=== PATIENT | male | born 1955 | race Hispanic/Latino ===

== ENCOUNTER 2018-03-13 10:16 | Observation (INO) | payer OTHER ==
[~2018-03-13 10:16] MED LIST: LACTATED RINGERS 1,000 ML IV SCH; MARCAINE 0.5% INFILTRATI ONE; METHYLENE BLUE IRRIGATION ONE; NACL 0.9% 1000 ML IR ONE; VERSED IV NR
[2018-03-13] MEDS ORDERED: ANCEF/STERILE WATER 2 GM/20 ML IV NR (12:00)
[2018-03-13] MEDS ORDERED: NACL BACTERIOSTATIC INFILTRATI ONE (12:05)
[2018-03-13 13:02] LABS: Basophils % (Auto) 0.7 % (0.0-1.8); Eosinophils # (Auto) 0.1 K/mm3 (0.0-0.4); Eosinophils % (Auto) 2.5 % (0.0-4.3); Hematocrit 44.3 % (35.5-45.6); Hemoglobin 14.1 gm/dl (11.8-15.2); Lymphocytes # (Auto) 1.6 K/mm3 (1.2-5.4); Lymphocytes % (Auto) 28.9 % (13.4-35.0); Mean Corpuscular HGB Conc 32 % (32-34); Mean Corpuscular Volume 74 fl (84-94); Monocytes # (Auto) 0.3 K/mm3 (0.0-0.8); Monocytes % (Auto) 5.9 % (0.0-7.3); Platelet Count 172 K/mm3 (140-440); Red Blood Count 5.95 M/mm3 (3.65-5.03); Red Cell Distribution Width 15.4 % (13.2-15.2)
[2018-03-13 13:06] LABS: Mean Corpuscular Hemoglobin 24 pg (28-32)
[2018-03-13] MEDS ORDERED: MARCAINE 0.5% 30 ML INFILTRATI ONE (13:40)
[2018-03-13] MEDS ORDERED: DIPRIVAN 10 MG/ML IV ONE (13:54)
[2018-03-13] MEDS ORDERED: SUBLIMAZE ONE (13:55)
--- NOTE | 2018-03-13 13:59 | Anesthesia Day of Surgery ---
Anesthesia Day of Surgery - Day of Surgery Patient Examined: Yes Patient H&P Reviewed: Yes Patient is NPO: Yes
[2018-03-13] MEDS ORDERED: TORADOL IV PRN (14:12)
[2018-03-13] MEDS ORDERED: ZOFRAN IV PRN ×2 (14:12→19:20)
[2018-03-13] MEDS ORDERED: DILAUDID IV PRN ×2 (14:12→19:18)
--- NOTE | 2018-03-13 14:12 | Anesthesia Consultation ---
Anesthesia Consult and Med Hx Date of service: 03/13/18 - Airway Anesthetic Teeth Evaluation: Good ROM Head & Neck: Adequate Mental/Hyoid Distance: Adequate Mallampati Class: Class II Intubation Access Assessment: Probably Good - Pulmonary Exam CTA: Yes - Cardiac Exam Cardiac Exam: RRR - Pre-Operative Health Status ASA Pre-Surgery Classification: ASA2 Proposed Anesthetic Plan: General - Pulmonary Hx Smoking: Yes (QUIT 1975) - Cardiovascular System Hx Hypertension: Yes Hx Coronary Artery Disease: Yes - Central Nervous System Hx Neuromuscular Disorder: No - Gastrointestinal Hx Ulcer: No Hx Gastroesophageal Reflux Disease: No - Other Systems Hx Alcohol Use: No Hx Substance Use: No Hx Cancer: No
[2018-03-13] MEDS ORDERED: ZEMURON IV ONE (14:49)
[2018-03-13] MEDS ORDERED: XYLOCAINE MPF 2% ONE (14:49)
[2018-03-13] MEDS ORDERED: DECADRON ONE (14:49)
[2018-03-13] MEDS ORDERED: ZOFRAN ONE (14:50)
[2018-03-13] MEDS ORDERED: DILAUDID ONE (14:50)
[2018-03-13] MEDS ORDERED: METHYLENE BLUE ONE (15:05)
[2018-03-13] MEDS ORDERED: NACL 0.9% 1000 ML 1,000 ML ONE (15:22)
--- NOTE | 2018-03-13 18:37 | Post Anesthesia Evaluation ---
- Post Anesthesia Evaluation Patient Participated: Yes Airway Patent: Yes Stable Respiratory Function: Yes Nausea/Vomiting: No Temp > 96.8F: Yes Pain Manageable: Yes Adequeate Hydration: Yes Anesthesia Complications: No Block Receding Appropriately: Not Applicable Patient on Ventilator: No
[2018-03-13] MEDS ORDERED: NORCO 5/325 PO PRN (19:19)
[2018-03-13] MEDS ORDERED: LACTATED RINGERS 1,000 ML IV SCH (20:00)
--- NOTE | 2018-03-13 21:40 | Operative Report ---
PREOPERATIVE DIAGNOSIS: Recurrent left inguinal hernia x 3. POSTOPERATIVE DIAGNOSIS: Recurrent left inguinal hernia x 3. PROCEDURE: Laparoscopic examination and laparoscopic repair of left inguinal hernia with removal of the hernia sac and application of a graft, ____ medium size. FINDINGS: The patient had a fairly good-sized hernia that could be seen from outside, is measuring at least about 8 x 8 cm. The defect is about 2 x 2 cm. I took a picture of that and I was able to remove the sac in its entirety with the use of the scope. This was sent to the pathologist. ANESTHESIA: General. BLOOD LOSS: Minimal. Findings as above with the hernia defect of about 2 x 2 cm. I was able to go around it and remove the entire sac. DESCRIPTION OF PROCEDURE: With the patient in supine position and after cleansing and draping in usual fashion, I made a small infraumbilical transverse incision with a length of about 2 cm deepened through subcutaneous tissue, all the way down to fascia, which was incised. I was able to introduce #10 trocar in the usual fashion under vision, it went in nicely, then tacking it to the fascia with use of 2 loops of 0 Vicryl. The abdominal cavity was insufflated with CO2 pressure of 15 for which #10 trocar was inserted. With use of the trocar, I was able to see the area, in question, we took picture of that. Then, I was able to go around the defect with the peritoneum, dissecting it completely and removing the whole specimen via the larger trocar. This was done with the use of 2 other trocars, #5 each, one in the midline, one in the right mid lower abdomen. After sustaining that, we were able to dissect the peritoneum well and I was able to see the ilioinguinal tract and the conjoint tendon area. I was able to introduce a medium-sized graft in the usual fashion, tacking it to the fascia with use of a tacker all around, putting 3 in the area of the ilioinguinal area. I was very much satisfied. We had good hemostasis. Then, I was able to introduce 2 piece of Seprafilm over the area with the omentum stuck to the graft area. We were very much satisfied, we had good hemostasis. I removed the trocars, one by one. I did instill methylene blue through the Leiva catheter to make sure that there was no leak into the abdominal cavity, which was the case that there was no leak. After that, the fascia was then closed with interrupted stitches of 0 Vicryl [id number], at least I put four stitches there and the skin with 4-0 Vicryl and the same to the 2 small incisions there. A scrotal support was then applied. Bandages were applied. The patient was then transferred to the recovery room in good condition. JOB# [id number] SUSIE/MARTIN
[2018-03-13] MEDS: ceFAZolin 1 GM in NACL 0.9% 20 ML IV SCH (21:49)
[2018-03-13] MEDS ORDERED: ceFAZolin 1 GM in NACL 0.9% 100 ML IV SCH (22:00)
[2018-03-14] MEDS: ceFAZolin 1 GM in NACL 0.9% 20 ML IV SCH (05:59)
[2018-03-14 12:22] VITALS: BP 123/75
== END 2018-03-14 13:18 | disposition home or self-care (01) ==
LOC: OR 10:16 → 3B-SURG 17:17
PROVIDERS: ADMIT Surgery; ATTEND Surgery
DX: K40.91 Unilateral inguinal hernia, without obstruction or gangrene, recurrent (principal); I10 Essential (primary) hypertension; I25.10 Atherosclerotic heart disease of native coronary artery without angina pectoris; Z87.891 Personal history of nicotine dependence
CPT/HCPCS: 36415; 49651; 85025; 88302; 96374; 96375; 96376; C1781; G0378; J0690; J1100; J1170; J1885; J2250; J2405; J2704; J3010; J7030; J7120; Q9968